=== PATIENT | male | born 1970 | race Caucasian/White ===

== ENCOUNTER → 2017-01-27 | Outpatient (CLI) | payer BC ==
[~2017-01-27] MED LIST: BUPR-79 PO; CHOL1000 PO; CIPR-255 PO; CYAN100T6 PO; ERGO500037 PO; EZET10TA63 PO; FENO145T26 PO; GLC/500 PO; HYDR-4717 PO; HYDR100T12 PO; INSDGI SC; INSDGIPEN SQ; LOSA100T65 PO; SERT50TA PO
[2017-01-27 10:16] LABS: BASO % 0.4 %; BASO ABS # 0.03 K/uL (0-0.2); COMPLETE YES; EOS % 0.8 %; HEMATOCRIT 43.1 % (42-52); IG% 0.8 %; LYMPH ABS # 1.27 K/uL (1.2-3.4); MEAN CELL VOLUME 89.8 fL (80-100); MEAN CORPUSCULAR HGB CONC 34.6 g/dl (32-36); MEAN PLATELET VOLUME 10.6 fL (7.4-10.4); MONO % 6.1 %; NEUT % 73.9 %; PLATELET COUNT 236 K/uL (130-400); WHITE BLOOD COUNT 7.06 K/uL (4.8-10.8)
[2017-01-27 10:42] LABS: ALT/SGPT 37 U/L (12-78); BLOOD UREA NITROGEN 14 mg/dl (7-18); BUN/CREATININE RATIO 14.2 (10-20); CALCIUM 8.9 mg/dl (8.5-10.1); CARBON DIOXIDE 28 mmol/L (21-32); CHLORIDE 103 mmol/L (98-107); CHOLESTEROL 168 mg/dl (0-200); GLUCOSE 160 mg/dl (70-99); POTASSIUM 3.9 mmol/L (3.5-5.1); SODIUM 138 mmol/L (136-145); TRIGLYCERIDES 814 mg/dl (0-150)
[2017-01-27 10:51] LABS: ALB/GLOB RATIO 1.2 (0.9-2); ALKALINE PHOSPHATASE 73 U/L (45-117); AST/SGOT 19 U/L (15-37); CHOLESTEROL/HDL RATIO 6.2; HDL CHOLESTEROL 27 mg/dl
[2017-01-27 12:39] LABS: RATIO 40.7 mcg/mg (0-30.0)
[2017-01-27 13:14] LABS: ESTIMATED AVERAGE GLUCOSE 166 mg/dl; HA1C FLAG Normal (Normal)
--- NOTE | 2017-02-01 09:22 | CODING QUERY MEDICAL NECESSITY ---
SUPPORTING DIAGNOSIS NEEDED Dr. Morales, A supporting diagnosis is required for the test/procedure performed on this patient in order for us to be reimbursed by the patient's insurance. Please provide a supporting diagnosis for the following test/procedure listed below next to the test name along with your signature. *If there is no additional diagnosis for this patient that would support the following test/procedure please document that below next to the test/procedure. Test(s)/Procedure(s) that require a supporting diagnosis: * ([id number]) VITAMIN D ASSAY DIAGNOSIS: * [id number] GLYCATED HEMOGLOBIN DIAGNOSIS: DATE OF SERVICE: 01/27/17 Provider Signature: Date: Thank you Arvin Vallecillo [employer] Once completed, please kindly fax back to [phone] For questions please call [phone]
== END | disposition home or self-care (01) ==
LOC: C.LAB 09:24
PROVIDERS: ATTEND Internal Medicine
DX: E78.00 Pure hypercholesterolemia, unspecified (principal); I10 Essential (primary) hypertension; R53.83 Other fatigue; E11.9 Type 2 diabetes mellitus without complications

== ENCOUNTER → 2017-04-10 | Day surgery (SDC) | payer BC ==
[2017-04-04 13:22] VITALS: Ht 180.3 cm; Wt 122.7 kg
[~2017-04-10] VITALS: Ht 180.3 cm; Wt 122.7 kg
[~2017-04-10] MED LIST changes: +ATROPINE SULFATE 0.1 MG/ML 5ML SYR IV PRN; -CIPR-255 PO; +EpHEDrine SULFATE INJ 50 MG/ML AMP IV PRN; +FENTANYL CITRATE INJ 50 MCG/1 ML 2 ML VIAL ONE; -HYDR100T12 PO; -INSDGIPEN SQ; +LIDOCAINE HCL 2% 2 ML VIAL (20MG/ML) ONE; +PROPOFOL IV EMULSION 10 MG/ML 20 ML VIAL IV ONE; +SODIUM CHLORIDE 0.9% 500ML 500 ML IV ONE
--- NOTE | 2017-04-10 10:42 | Endo History and Physical ---
History & Physical Date of Service: Apr 10, 2017. Chief Complaint: Abd pain, Family hx of colon polyps Referring Physician: Bel History of Present Illness 46 yo CM who presents for Colonoscopy secondary to family history of colon polyps. Past Surgical History Hx Cardiac Surgery: No Hx Internal Defibrillator: No Hx Pacemaker: No Hx Abdominal Surgery: No Hx of Implantable Prosthesis: No Hx Post-Op Nausea and Vomiting: No Hx Cancer Surgery: No Hx Thoracic Surgery: No Hx Orthopedic: Yes (RT 4TH FINGER REPAIR (RE-ATTACHED)) Hx Urinary Tract Surgery: No Family History None Social History Smoking Status: Never Smoker Hx Substance Use: No Hx Alcohol Use: Yes (RARELY) Allergies Coded Allergies: Azithromycin (Verified Allergy, Unknown, RASH, 04/10/17) Glipizide (Verified Allergy, Unknown, SKIN RED, 04/10/17) Penicillins (Verified Allergy, Unknown, A CHILD, UNKNOWN, 04/10/17) Current Medications Reported Home Medications Medications Dose Route/Sig Max Daily Dose Days Date Category Vitamin B12 100 Mcg (Cyanocobalamin) 100 Mcg Tab 100 Mcg PO QPM 04/04/17 Reported Vitamin D3 (Cholecalciferol) 1,000 Unit Tab 1 Tab PO QPM 90 04/04/17 Reported Cozaar (Losartan Potassium) 100 Mg Tab 100 Mg PO QPM 04/04/17 Reported Lantus (Insulin Glargine) 100 Unit/Ml Inj 20 Units SC QPM 04/04/17 Reported Apresoline (Hydralazine Hcl) 50 Mg Tab 50 Mg PO TID 04/04/17 Reported Tricor (Fenofibrate) 145 Mg Tab 145 Mg PO QAM 07/23/16 Reported Zetia (Ezetimibe) 10 Mg Tab 10 Mg PO QPM 07/23/16 Reported Wellbutrin Sr (Bupropion HCl) 150 Mg Ertab 150 Mg PO QAM 07/23/16 Reported Glucophage (Metformin Hcl) 500 Mg Tab 500 Mg PO BID 07/23/16 Reported Zoloft (Sertraline HCl) 50 Mg Tab 50 Mg PO QPM 09/02/11 Reported Vital Signs Weight (Kilograms): 122.73 Height (Feet): 5 Height (Inches): 11 Date Time Temp Pulse Resp B/P (MAP) Pulse Ox O2 Delivery O2 Flow Rate FiO2 04/10/17 10:34 37.0 74 20 140/77 (98) 96 Room Air Physical Exam General Appearance: WD/WN, no apparent distress Respiratory/Chest: Auscultation: breath sounds normal Cardiovascular: Heart Auscultation: RRR Abdomen: Bowel Sounds: normal Inspection & Palpation: soft, non-distended, no tenderness, guarding & rebound Assessment and Plan Assessment: 46 yo CM who presents for Colonoscopy secondary to family history of colon polyps. Plan: Proceed with colonoscopy.
--- NOTE | 2017-04-10 11:26 | GI REPORT ---
Procedure Date: 04/10/2017 10:53 AM Procedure: Colonoscopy Indications: Family history of colonic polyps in a first-degree relative Medicines: Monitored Anesthesia Care Complications: No immediate complications. Estimated Blood Loss: Estimated blood loss: none. Procedure: Pre-Anesthesia Assessment: - Prior to the procedure, a History and Physical was performed, and patient medications and allergies were reviewed. The patient's tolerance of previous anesthesia was also reviewed. The risks and benefits of the procedure and the sedation options and risks were discussed with the patient. All questions were answered, and informed consent was obtained. Prior Anticoagulants: The patient has taken no previous anticoagulant or antiplatelet agents. ASA Grade Assessment: III - A patient with severe systemic disease. After reviewing the risks and benefits, the patient was deemed in satisfactory condition to undergo the procedure. After I obtained informed consent, the scope was passed under direct vision. Throughout the procedure, the patient's blood pressure, pulse, and oxygen saturations were monitored continuously. The scope was introduced through the anus and advanced to the terminal ileum. The colonoscopy was performed without difficulty. The patient tolerated the procedure well. The quality of the bowel preparation was good. The terminal ileum, ileocecal valve, appendiceal orifice, and rectum were photographed. Findings: Three sessile polyps were found in the sigmoid colon and in the ascending colon. The polyps were 5 to 6 mm in size. These polyps were removed with a hot snare. Resection and retrieval were complete. Multiple small-mouthed diverticula were found in the sigmoid colon. Impression: - Three 5 to 6 mm polyps in the sigmoid colon and in the ascending colon, removed with a hot snare. Resected and retrieved. - Diverticulosis in the sigmoid colon. Recommendation: - Resume previous diet. - Continue present medications. - Repeat colonoscopy for surveillance based on pathology results. - Return to primary care physician as previously scheduled. Jose M Coyne DO 04/10/2017 11:25:59 AM This report has been signed electronically. Note Initiated On: 04/10/2017 10:53 AM I attest to the content of the Intraoperative Record and orders documented therein, exceptions below
[2017-04-10 11:50] VITALS: BP 140/88; PULSE 74; O2SAT 98
--- NOTE | 2017-04-10 11:52 | Anesthesiology Progress Note ---
Anesthesia Post Op Note Date & Time Apr 10, 2017 at 11:52 Vital Signs Pain Intensity: 0 Vital Signs Past 12 Hours Date Time Temp Pulse Resp B/P (MAP) Pulse Ox O2 Delivery O2 Flow Rate FiO2 04/10/17 10:34 37.0 74 20 140/77 (98) 96 Room Air Notes Mental Status: alert / awake / arousable, participated in evaluation Pt Amnestic to Procedure: Yes Nausea / Vomiting: adequately controlled Pain: adequately controlled Airway Patency, RR, SpO2: stable & adequate BP & HR: stable & adequate Hydration State: stable & adequate Anesthetic Complications: no major complications apparent
--- NOTE | 2017-04-10 11:56 | Discharge Instructions ---
Endoscopy Patient Instructions Date / Procedure(s) Performed Apr 10, 2017. Colonoscopy Allergy Information Coded Allergies: Azithromycin (Verified Allergy, Unknown, RASH, 04/10/17) Glipizide (Verified Allergy, Unknown, SKIN RED, 04/10/17) Penicillins (Verified Allergy, Unknown, A CHILD, UNKNOWN, 04/10/17) Discharge Date / Findings Apr 10, 2017. Colon polyps Diverticulosis Medication Instructions Stopped Medication(s): all meds held for two days OK to resume all medications today as prescribed Medications Dose Route/Sig Max Daily Dose Days Date Category Vitamin B12 100 Mcg (Cyanocobalamin) 100 Mcg Tab 100 Mcg PO QPM 04/04/17 Reported Vitamin D3 (Cholecalciferol) 1,000 Unit Tab 1 Tab PO QPM 90 04/04/17 Reported Cozaar (Losartan Potassium) 100 Mg Tab 100 Mg PO QPM 04/04/17 Reported Lantus (Insulin Glargine) 100 Unit/Ml Inj 20 Units SC QPM 04/04/17 Reported Apresoline (Hydralazine Hcl) 50 Mg Tab 50 Mg PO TID 04/04/17 Reported Tricor (Fenofibrate) 145 Mg Tab 145 Mg PO QAM 07/23/16 Reported Zetia (Ezetimibe) 10 Mg Tab 10 Mg PO QPM 07/23/16 Reported Wellbutrin Sr (Bupropion HCl) 150 Mg Ertab 150 Mg PO QAM 07/23/16 Reported Glucophage (Metformin Hcl) 500 Mg Tab 500 Mg PO BID 07/23/16 Reported Zoloft (Sertraline HCl) 50 Mg Tab 50 Mg PO QPM 09/02/11 Reported Provider Instructions Activity Restrictions - No exercising or heavy lifting for 24 hours. - Do not drink alcohol the day of the procedure. - Do not drive a car or operate machinery until the day after the procedure. - Do not make any important decisions or sign important papers in 24 hours after the procedure. Following Day: - Return to full activity which may include returning to work/school. Diet Start your diet with liquids and light foods (jello, soup, juice, toast). Then eat your usual diet if not nauseated. Treatment For Common After Affects For mild abdominal pain, bloating, or excessive gas: - Rest - Eat lightly - Lie on right side Follow-Up Information Follow-up with Bel as scheduled Anesthesia Information What You Should Know You have had a procedure that required some medicine to reduce anxiety and discomfort. This treatment is called moderate sedation. After receiving the treatment, you may be sleepy, but you will be able to breathe on your own. The effects of the treatment may last for several hours. Follow these instructions along with Activity/Diet recommendations noted above: * Do NOT do anything where dizziness or clumsiness would be dangerous. * Rest quietly at home today, then you can be up and about tomorrow. * Have a responsible person stay with you the rest of today. * You may have had an I.V. today. If so, you may take the dressing off later today. Recommendations Call your doctor if: * Trouble breathing * Continuous vomiting for more than 24 hours * Temperature above 101 degrees * Severe abdominal pain or bloating * Pain not relieved by pain medicine ordered * There is increased drainage or redness from any incision * A large amount of rectal bleeding greater than 2-3 tablespoons. (If you had a polyp/s removed or have hemorrhoids, a small amount of blood - from the rectum is to be expected.) * You have any unanswered questions or concerns. IN THE EVENT OF A SERIOUS EMERGENCY, GO TO THE NEAREST EMERGENCY ROOM Your discharge instructions were prepared by provider Jose M Coyne. Patient Instructions Signature Page Hardik Machuca Patient (or Guardian) Signature/Date: I have read and understand the instructions given to me by my caregivers. Caregiver/RN/Doctor Signature/Date: The above-named patient and/or guardian has received patient instructions on this date. + Original Patient Signature Page (only) stays with chart. Please make copy for patient.
== END | disposition home or self-care (01) ==
LOC: C.GI 10:07
PROVIDERS: ATTEND Internal Medicine
DX: Z12.11 Encounter for screening for malignant neoplasm of colon (principal); D12.5 Benign neoplasm of sigmoid colon; D12.2 Benign neoplasm of ascending colon; K57.30 Diverticulosis of large intestine without perforation or abscess without bleeding; E11.9 Type 2 diabetes mellitus without complications; E78.5 Hyperlipidemia, unspecified; F32.9 Major depressive disorder, single episode, unspecified; G47.33 Obstructive sleep apnea (adult) (pediatric); Z88.1 Allergy status to other antibiotic agents; Z88.0 Allergy status to penicillin; Z79.4 Long term (current) use of insulin; E66.9 Obesity, unspecified; Z68.37 Body mass index [BMI] 37.0-37.9, adult; Z90.89 Acquired absence of other organs; Z83.71 Family history of colonic polyps

== ENCOUNTER → 2017-05-18 | Outpatient (CLI) | payer BC ==
[~2017-05-18] VITALS: Ht 180.3 cm; Wt 128.2 kg
[~2017-05-18] MED LIST changes: -ATROPINE SULFATE 0.1 MG/ML 5ML SYR IV PRN; -ERGO500037 PO; -EpHEDrine SULFATE INJ 50 MG/ML AMP IV PRN; -FENTANYL CITRATE INJ 50 MCG/1 ML 2 ML VIAL ONE; -LIDOCAINE HCL 2% 2 ML VIAL (20MG/ML) ONE; -PROPOFOL IV EMULSION 10 MG/ML 20 ML VIAL IV ONE; -SODIUM CHLORIDE 0.9% 500ML 500 ML IV ONE
[2017-05-18 14:00] VITALS: BP 128/79; PULSE 111; Ht 180.3 cm; Wt 128.2 kg
== END | disposition home or self-care (01) ==
LOC: C.NEUR 13:07
PROVIDERS: ATTEND Internal Medicine Pulmonary Disease
DX: G47.33 Obstructive sleep apnea (adult) (pediatric) (principal)

== ENCOUNTER → 2017-08-18 | Outpatient (CLI) | payer BC ==
[2017-08-18 10:23] LABS: ESTIMATED AVERAGE GLUCOSE 148 mg/dl; HA1C FLAG Normal (Normal)
[2017-08-18 10:37] LABS: ALB/GLOB RATIO 1.2 (0.9-2); ALT/SGPT 32 U/L (12-78); AST/SGOT 19 U/L (15-37); BLOOD UREA NITROGEN 21 mg/dl (7-18); BUN/CREATININE RATIO 18.5 (10-20); CALCIUM 9.6 mg/dl (8.5-10.1); CARBON DIOXIDE 25 mmol/L (21-32); CHLORIDE 103 mmol/L (98-107); CHOLESTEROL 147 mg/dl (0-200); CREATININE 1.15 mg/dl (0.60-1.40); GLUCOSE 161 mg/dl (70-99); POTASSIUM 4.2 mmol/L (3.5-5.1); SODIUM 137 mmol/L (136-145)
[2017-08-18 10:38] LABS: ALKALINE PHOSPHATASE 66 U/L (45-117); CHOLESTEROL/HDL RATIO 5.7; HDL CHOLESTEROL 26 mg/dl; TRIGLYCERIDES 609 mg/dl (0-150)
[2017-08-18 11:21] LABS: RATIO 12.9 mcg/mg (0-30.0)
== END | disposition home or self-care (01) ==
LOC: C.LAB 08:41
PROVIDERS: ATTEND Nurse Practitioner Family
DX: E78.00 Pure hypercholesterolemia, unspecified (principal); E55.9 Vitamin D deficiency, unspecified; E11.9 Type 2 diabetes mellitus without complications

== ENCOUNTER → 2017-12-21 | Outpatient (CLI) | payer BC ==
[2017-12-21 10:03] LABS: HEMOGLOBIN A1C 7.2 % (4.5-5.6)
== END | disposition home or self-care (01) ==
LOC: C.LAB 07:59
PROVIDERS: ATTEND Nurse Practitioner Family
DX: E11.9 Type 2 diabetes mellitus without complications (principal)

== ENCOUNTER → 2018-05-17 | Outpatient (CLI) | payer BC ==
[2018-05-17 09:53] LABS: HEMOGLOBIN A1C 8.4 % (4.5-5.6)
[2018-05-17 10:34] LABS: SODIUM 138 mmol/L (136-145)
[2018-05-17 10:40] LABS: AST/SGOT 25 U/L (15-37); GLUCOSE 215 mg/dl (70-99)
[2018-05-17 10:41] LABS: ALBUMIN 3.9 gm/dl (3.4-5.0); ALKALINE PHOSPHATASE 77 U/L (45-117); ALT/SGPT 47 U/L (12-78); BLOOD UREA NITROGEN 16 mg/dl (7-18); CALCIUM 8.8 mg/dl (8.5-10.1); CARBON DIOXIDE 24 mmol/L (21-32); CHOLESTEROL 170 mg/dl (0-200); POTASSIUM 4.3 mmol/L (3.5-5.1); TOTAL PROTEIN 7.1 gm/dl (6.4-8.2)
== END | disposition home or self-care (01) ==
LOC: C.LAB 06:47
PROVIDERS: ATTEND Internal Medicine
DX: E11.65 Type 2 diabetes mellitus with hyperglycemia (principal); E55.9 Vitamin D deficiency, unspecified

== ENCOUNTER → 2018-05-17 | Outpatient (CLI) | payer BC ==
[~2018-05-17] VITALS: Ht 180.3 cm; Wt 125.1 kg
[2018-05-17 15:42] VITALS: BP 141/92; PULSE 101; Ht 180.3 cm; Wt 125.1 kg
== END | disposition home or self-care (01) ==
LOC: C.NEUR 15:10
PROVIDERS: ATTEND Internal Medicine Pulmonary Disease
DX: G47.33 Obstructive sleep apnea (adult) (pediatric) (principal); E88.81 Metabolic syndrome and other insulin resistance; E11.65 Type 2 diabetes mellitus with hyperglycemia